=== PATIENT | male | born 1985 | race African-American/Black ===

== ENCOUNTER 2019-06-07 09:11 | Emergency (ER) | payer OTHER ==
[~2019-06-07] VITALS: Ht 188 cm; Wt 90.9 kg
[2019-06-07] MEDS ORDERED: BISM262O25 PO (09:19)
[2019-06-07 09:59] LABS: BASOPHILS % (AUTO) 0.4 % (0.0-2.0); EOSINOPHILS % (AUTO) 0.1 % (1.0-6.0); HEMATOCRIT 47.4 % (41-53); HEMOGLOBIN 16.1 g/dL (13.5-17.5); LYMPHOCYTES # (AUTO) 1.2 K/uL (1.0-4.8); LYMPHOCYTES % (AUTO) 6.9 % (22.0-44.0); MEAN CORPUSCULAR HEMOGLOBIN 32.1 pg (26.0-34.0); MEAN CORPUSCULAR VOLUME 94 fL (80-100); MONOCYTES # (AUTO) 0.6 K/uL (0.1-1.0); MONOCYTES % (AUTO) 3.8 % (2.0-9.0); NEUTROPHILS # (AUTO) 15.2 K/uL (1.8-7.7); PLATELET COUNT (AUTO) 230 K/uL (150-450); RED BLOOD CELL COUNT(AUTO) 5.02 MIL/uL (4.50-5.90); RED CELL DISTRIBUTION WIDTH 13.5 % (11.5-14.5)
[2019-06-07 10:01] LABS: NEUTROPHILS % (AUTO) 88.8 % (40.0-70.0)
[2019-06-07 10:08] LABS: ANION GAP 11 mmol/L (8-16); CALCIUM, TOTAL 9.8 mg/dL (8.8-10.5); CARBON DIOXIDE 28 mmol/L (22-29); CHLORIDE 97 mmol/L (98-107); CREATININE 1.47 mg/dL (0.60-1.30); GLOMERULAR FILTR. RATE CALC > 60 mL/min (>60); GLUCOSE,RANDOM 109 mg/dL (70-110); POTASSIUM 3.5 mmol/L (3.5-5.1); SODIUM SERUM 136 mmol/L (136-145); UREA NITROGEN, BLOOD 23 mg/dL (7-18)
[2019-06-07 10:14] LABS: ALANINE AMINOTRANSFERASE 14 U/L (12-78); ALBUMIN 4.7 g/dL (3.4-5.0); ALKALINE PHOSPHATASE 96 U/L (46-116); ASPARTATE AMINOTRANSFERASE 19 U/L (15-37); BILIRUBIN,TOTAL 0.8 mg/dL (0.1-1.0); LIPASE 134 U/L (73-393); TOTAL PROTEIN, SERUM 8.6 g/dL (6.4-8.2)
[2019-06-07] MEDS ORDERED: ONDANSETRON HCL 4 MG/2 ML VIAL IVP ONE (10:15)
[2019-06-07] MEDS ORDERED: SODIUM CHLORIDE 0.9% 1,000 ML IV ONE ×2 (10:15→12:00)
[2019-06-07] MEDS ORDERED: DiphenhydrAMINE HCL 50 MG/ML VIAL IVP STA (11:58)
[2019-06-07] MEDS ORDERED: METOCLOPRAMIDE HCL 5 MG/ML 2 ML VIAL IVP ONE (12:00)
[2019-06-07] MEDS ORDERED: FAMOTIDINE 10 MG/ML 2 ML VIAL IVP ONE (12:00)
[2019-06-07 13:54] LABS: APPEARANCE,URINE CLOUDY (CLEAR); GLUCOSE, URINE (UA) NEGATIVE (NEGATIVE); KETONES,URINE 15 mg/dL (NEGATIVE); LEUKOCYTE ESTERASE ,URINE NEGATIVE (NEGATIVE); NITRATE,URINE NEGATIVE (NEGATIVE); OCCULT BLOOD,URINE NEGATIVE (NEGATIVE); PROTEIN,URINE POS 1+ (NEGATIVE)
[2019-06-07 14:08] LABS: BILIRUBIN,URINE PRELIM. POSITIVE (NEGATIVE)
[2019-06-07 14:23] LABS: RBC,URINE None Seen /HPF (0-2)
[2019-06-07 14:30] LABS: CALCIUM OXALATE CRYSTALS,UR Moderate /LPF (None Seen); SQUAMOUS EPITHELIAL CELL,UR Few /LPF (None Seen)
[2019-06-07 14:31] LABS: MUCUS,URINE Many LPF (None Seen)
[2019-06-07] MEDS ORDERED: IOVERSOL 350 MG/ML 150 ML VIAL ONE (14:31)
[2019-06-07] MEDS ORDERED: SODIUM CHLORIDE 0.9% 0 ML ONE (14:31)
[2019-06-07 14:32] LABS: BACTERIA,URINE Few /HPF (None Seen)
[2019-06-07 15:20] VITALS: BP 133/76
== END 2019-06-07 16:04 | disposition left against medical advice (07) ==
LOC: EMS 09:13
DX: E86.0 Dehydration (principal); D72.829 Elevated white blood cell count, unspecified; R10.13 Epigastric pain; R11.2 Nausea with vomiting, unspecified; N28.9 Disorder of kidney and ureter, unspecified; R19.7 Diarrhea, unspecified; F12.90 Cannabis use, unspecified, uncomplicated; Z87.891 Personal history of nicotine dependence
CPT/HCPCS: 36415; 80053; 81001; 83690; 85025; 87086; 96361; 96374; 96375; 99283; J1200; J2405; J2765; J3490; J7030; J7050